=== PATIENT | female | born 1970 | race Caucasian/White ===

== ENCOUNTER 2019-08-09 14:36 | Observation (INO) ==
[2019-08-09] MEDS ORDERED: Isovue-370 500 ML BOTTLE IVP ONE ×2 (15:07→15:41)
[2019-08-09] MEDS ORDERED: Ipratropium/Albuterol Neb 3 ML IH STA (15:08)
[2019-08-09 15:18] LABS: Basophils # 0.1 K/mcL (0.0-0.2); Basophils % 0.8 %; Eosinophils % 0.3 %; Hematocrit 42.8 % (35.3-44.9); Hemoglobin 13.9 g/dL (11.5-15.4); Immature Granulocytes % 0.5 % (0-4); Lymphocytes # 0.5 K/mcL (0.6-4.6); Lymphocytes % 6.3 %; Mean Corpuscular HGB Conc 32.5 g/dL (31.6-35.5); Mean Corpuscular Hemoglobin 26.5 pg (28.0-33.3); Mean Corpuscular Volume 81.7 fL (83.0-100.0); Mean Platelet Volume 9.5 fL (9.4-12.4); Monocytes # 1.3 K/mcL (0.0-1.3); Monocytes % 17.1 %; Neutrophils # 5.6 K/mcL (1.6-8.9); Platelet Count 321 K/mcL (140-400); Red Blood Count 5.24 M/mcL (3.82-4.97); Red Cell Distribution Width 15.8 % (11.5-14.5); White Blood Count 7.4 K/mcL (4.3-11.1)
[2019-08-09 15:28] LABS: INR 1.1; Prothrombin Time 12.2 Seconds (9.4-12.1)
[2019-08-09 15:38] LABS: Alanine Aminotransferase 57 Units/L (7-52); Albumin 4.3 g/dL (3.5-5.7); Albumin/Globulin Ratio 1.2 (1.1-2.2); Alkaline Phosphatase 51 Units/L (34-104); Aspartate Amino Transferase 57 Units/L (13-39); BUN/Creatinine Ratio 19 (6-26); Bilirubin,Direct 0.1 mg/dL (0.0-0.2); Bilirubin,Indirect 0.2 mg/dL (0.0-1.0); Bilirubin,Total 0.3 mg/dL (0.3-1.0); Blood Urea Nitrogen 20 mg/dL (6-20); Calcium 9.7 mg/dL (8.6-10.3); Carbon Dioxide 26 mEq/L (23-29); Chloride 99 mEq/L (98-107); Globulin 3.6 g/dL (2.4-3.5); Glucose 199 mg/dL (70-105); Osmolality,Calculated 290 (280-300); Potassium 4.2 mEq/L (3.5-5.1); Sodium 136 mEq/L (136-145); Total Protein 7.9 g/dL (6.4-8.9); eGFR For African Americans > 60 (> 60); eGFR For Non-African Americans 55 (> 60)
[2019-08-09] MEDS ORDERED: Albuterol Neb 1.25 MG/3 ML VIAL IH ONE (16:39)
[2019-08-09] MEDS ORDERED: Albuterol 2.5 MG/3 ML NEBULIZER IH ONE (16:47)
[2019-08-09] MEDS ORDERED: 0.9 % Sodium Chloride 1,000 ML IVC STA (17:06)
[2019-08-09] MEDS ORDERED: Ondansetron 4 MG/2 ML VIAL IVP PRN (17:40)
[2019-08-09] MEDS ORDERED: Azithromycin 250 MG TABLET PO ONE (17:45)
[2019-08-09] MEDS ORDERED: methylPREDNISolone 125 MG/2 ML VIAL IVP STA (17:45)
[2019-08-09] MEDS ORDERED: Nicotine 2 MG GUM BC PRN (17:47)
[2019-08-09] MEDS ORDERED: *HR* Dextrose 50 % in Water (Syg) 50 ML SYRINGE IVP PRN (17:52)
[2019-08-09] MEDS ORDERED: Dextrose Gel 15 GM/37.5 ML TUBE PO PRN ×2 (17:52)
[2019-08-09] MEDS ORDERED: D5% in Water 1,000 ML IVC PRN (17:52)
[2019-08-09] MEDS: Ipratropium/Albuterol Neb 3 ML IH SCH ×2 (19:52→23:48)
[2019-08-09 20:17] LABS: VBG HCO3 25 mEq/L (21-27); VBG PCO2 51 mmHg (41-51); VBG PH 7.29 pH Units (7.32-7.42); VBG PO2 67 mmHg (25-50)
[2019-08-09] MEDS: Insulin LISPRO 300 UNITS/3 ML VIAL SQ SCH (20:27)
[2019-08-09] MEDS: Nicotine 21 MG PATCH.TD24 TD SCH (20:40)
[2019-08-09] MEDS: Ibuprofen 400 MG TABLET PO PRN (20:44)
[2019-08-10 01:05] LABS: Adenovirus Not Detected (Not Detect); Bordetella Pertussis Not Detected (Not Detect); Chlamydophila pneumoniae Not Detected (Not Detect); Coronavirus 229E Not Detected (Not Detect); Coronavirus HKU1 Not Detected (Not Detect); Coronavirus NL63 Not Detected (Not Detect); Coronavirus OC43 Not Detected (Not Detect); Human Metapneumovirus Not Detected (Not Detect); Human Rhinovirus/Enterovirus Not Detected (Not Detect); Influenza B Not Detected (Not Detect); Mycoplasma pneumoniae Not Detected (Not Detect); Parainfluenza Virus 1 Not Detected (Not Detect); Parainfluenza Virus 2 Not Detected (Not Detect); Parainfluenza Virus 3 Not Detected (Not Detect); Parainfluenza Virus 4 Not Detected (Not Detect); Respiratory Syncytial Virus Not Detected (Not Detect)
[2019-08-10 01:08] LABS: Influenza A Subtype 2009 H1 DETECTED (Not Detect)
[2019-08-10] MEDS: Acetaminophen 325 MG TABLET PO PRN ×4 (01:17→20:48)
[2019-08-10] MEDS: Ipratropium/Albuterol Neb 3 ML IH SCH ×6 (03:17→23:31)
[2019-08-10 04:51] LABS: Mean Corpuscular HGB Conc 31.3 g/dL (31.6-35.5); Mean Corpuscular Hemoglobin 26.8 pg (28.0-33.3); Mean Corpuscular Volume 85.7 fL (83.0-100.0); Mean Platelet Volume 9.8 fL (9.4-12.4); Platelet Count 265 K/mcL (140-400); Red Blood Count 4.55 M/mcL (3.82-4.97); Red Cell Distribution Width 15.7 % (11.5-14.5); White Blood Count 6.7 K/mcL (4.3-11.1)
[2019-08-10 05:00] LABS: Hemoglobin 12.2 g/dL (11.5-15.4)
[2019-08-10] MEDS: *HR* Enoxaparin 40 MG/0.4 ML SYRINGE SQ SCH (05:00)
[2019-08-10] MEDS: Ibuprofen 400 MG TABLET PO PRN (05:00)
[2019-08-10 05:25] LABS: BUN/Creatinine Ratio 19 (6-26); Blood Urea Nitrogen 21 mg/dL (6-20); Calcium 8.4 mg/dL (8.6-10.3); Carbon Dioxide 23 mEq/L (23-29); Chloride 102 mEq/L (98-107); Glucose 131 mg/dL (70-105); Magnesium 1.9 mg/dL (1.6-2.6); Osmolality,Calculated 287 (280-300); Phosphorous 3.5 mg/dL (2.7-4.5); Potassium 3.5 mEq/L (3.5-5.1); Sodium 136 mEq/L (136-145); Troponin I 0.03 ng/mL (< 0.04); eGFR For African Americans > 60 (> 60); eGFR For Non-African Americans 52 (> 60)
[2019-08-10] MEDS: Benzonatate 100 MG CAPSULE PO PRN ×2 (05:59→15:10)
[2019-08-10] MEDS: predniSONE 20 MG TABLET PO SCH (08:51)
[2019-08-10] MEDS: Azithromycin 250 MG TABLET PO SCH (08:51)
[2019-08-10] MEDS: Nicotine 21 MG PATCH.TD24 TD SCH ×2 (08:51→18:01)
[2019-08-10] MEDS: Insulin LISPRO 300 UNITS/3 ML VIAL SQ SCH ×4 (08:51→20:46)
[2019-08-10] MEDS: HYDROcodone BIT/Homatropine LQ 5 MG/5 ML UDC PO PRN ×2 (11:12→20:47)
[2019-08-10] MEDS ORDERED: Insulin DETEMIR 100 UNIT/ML X5UNITS SQ SCH (21:00)
[2019-08-10] MEDS ORDERED: Gabapentin 100 MG CAPSULE PO SCH (21:00)
[2019-08-11] MEDS: Benzonatate 100 MG CAPSULE PO PRN (01:22)
[2019-08-11] MEDS: Acetaminophen 325 MG TABLET PO PRN (03:11)
[2019-08-11] MEDS: Ipratropium/Albuterol Neb 3 ML IH SCH ×4 (04:23→15:32)
[2019-08-11] MEDS: *HR* Enoxaparin 40 MG/0.4 ML SYRINGE SQ SCH (05:42)
[2019-08-11] MEDS: HYDROcodone BIT/Homatropine LQ 5 MG/5 ML UDC PO PRN (05:43)
[2019-08-11] MEDS: Azithromycin 250 MG TABLET PO SCH (07:53)
[2019-08-11] MEDS: predniSONE 20 MG TABLET PO SCH (07:54)
[2019-08-11] MEDS: Insulin LISPRO 300 UNITS/3 ML VIAL SQ SCH ×4 (07:54→12:28)
[2019-08-11] MEDS ORDERED: Fluticasone Propionate Nasal 50 MCG/SPRAY BOTTLE NS SCH (09:00)
[2019-08-11 15:57] VITALS: BP 119/80
== END 2019-08-11 16:21 | disposition home or self-care (01) ==
LOC: EMEROOARM 14:36 → 2NENU 14:36 → SUATTDRO 18:19 → 2NENU 19:30
PROVIDERS: ADMIT Internal Medicine; ATTEND Internal Medicine

== ENCOUNTER 2019-08-16 11:01 | Inpatient (IN) ==
[2019-08-16] MEDS ORDERED: Ipratropium/Albuterol Neb 3 ML IH STA (11:11)
[2019-08-16] MEDS ORDERED: 0.9 % Sodium Chloride 1,000 ML IVC ONE (11:23)
[2019-08-16] MEDS ORDERED: predniSONE 20 MG TABLET PO STA (11:26)
[2019-08-16] MEDS ORDERED: MethylPREDNISolone 40 MG/ML VIAL IVP ONE (11:28)
[2019-08-16 11:40] LABS: Hematocrit 39.8 % (35.3-44.9); Red Blood Count 4.81 M/mcL (3.82-4.97)
[2019-08-16 11:41] LABS: Basophils % 0.3 %; Eosinophils # 0.1 K/mcL (0.0-0.6); Eosinophils % 0.7 %; Immature Granulocytes % 0.7 % (0-4); Lymphocytes # 3.4 K/mcL (0.6-4.6); Lymphocytes % 24.9 %; Mean Corpuscular HGB Conc 32.7 g/dL (31.6-35.5); Mean Corpuscular Volume 82.7 fL (83.0-100.0); Mean Platelet Volume 9.7 fL (9.4-12.4); Monocytes # 1.2 K/mcL (0.0-1.3); Monocytes % 8.4 %; Platelet Count 378 K/mcL (140-400); Red Cell Distribution Width 15.3 % (11.5-14.5)
[2019-08-16] MEDS ORDERED: Azithromycin desensitization 1 mg/mL IVP ONE (11:41)
[2019-08-16 11:42] LABS: White Blood Count 13.8 K/mcL (4.3-11.1)
[2019-08-16 11:43] LABS: Platelet Estimate Normal (Normal); Reactive Lymphocytes Present (Not Present)
[2019-08-16] MEDS ORDERED: Cefepime HCl 2,000 MG in Water for inj. (sterile) 20 ML IVP ONE (11:43)
[2019-08-16] MEDS ORDERED: Azithromycin 500 MG in 0.9 % Sodium Chloride 250 ML IVPB ONE (11:51)
[2019-08-16 11:54] LABS: BUN/Creatinine Ratio 13 (6-26); Blood Urea Nitrogen 12 mg/dL (6-20); Carbon Dioxide 24 mEq/L (23-29); Chloride 105 mEq/L (98-107); Potassium 3.9 mEq/L (3.5-5.1); Sodium 137 mEq/L (136-145)
[2019-08-16 11:55] LABS: Calcium 8.9 mg/dL (8.6-10.3); Glucose 184 mg/dL (70-105); Osmolality,Calculated 289 (280-300); Troponin I < 0.03 ng/mL (< 0.04); eGFR For African Americans > 60 (> 60); eGFR For Non-African Americans > 60 (> 60)
[2019-08-16] MEDS ORDERED: Naloxone 0.4 MG/ML INJ IVP PRN (12:39)
[2019-08-16] MEDS ORDERED: *HR* Dextrose 50 % in Water (Syg) 50 ML SYRINGE IVP PRN (12:43)
[2019-08-16] MEDS ORDERED: D5% in Water 1,000 ML IVC PRN (12:43)
[2019-08-16] MEDS ORDERED: Dextrose Gel 15 GM/37.5 ML TUBE PO PRN ×2 (12:43)
[2019-08-16] MEDS: Furosemide 40 MG/4 ML VIAL IVP SCH ×2 (14:41→20:41)
[2019-08-16] MEDS: Cholecalciferol (D-3) 1,000 UNIT (25MCG) TABLET PO SCH (14:41)
[2019-08-16] MEDS: Budesonide/Formoterol 160/4.5 1 PUFF INH IH SCH ×2 (14:43→19:37)
[2019-08-16] MEDS: MethylPREDNISolone 40 MG/ML VIAL IVP SCH ×2 (14:44→23:05)
[2019-08-16] MEDS: Insulin LISPRO 300 UNITS/3 ML VIAL SQ SCH ×3 (14:46→20:47)
[2019-08-16 16:09] LABS: Adenovirus Not Detected (Not Detect); Coronavirus 229E Not Detected (Not Detect); Coronavirus HKU1 Not Detected (Not Detect); Coronavirus NL63 Not Detected (Not Detect); Coronavirus OC43 Not Detected (Not Detect); Human Metapneumovirus Not Detected (Not Detect); Human Rhinovirus/Enterovirus Not Detected (Not Detect)
[2019-08-16 16:10] LABS: Bordetella Pertussis Not Detected (Not Detect); Chlamydophila pneumoniae Not Detected (Not Detect); Influenza A Subtype 2009 H1 Not Detected (Not Detect); Influenza B Not Detected (Not Detect); Mycoplasma pneumoniae Not Detected (Not Detect); Parainfluenza Virus 1 Not Detected (Not Detect); Parainfluenza Virus 2 Not Detected (Not Detect); Parainfluenza Virus 3 Not Detected (Not Detect); Parainfluenza Virus 4 Not Detected (Not Detect); Respiratory Syncytial Virus Not Detected (Not Detect)
[2019-08-16 16:19] LABS: Estimated Average Glucose 177 mg/dl
[2019-08-16] MEDS: Ipratropium/Albuterol Neb 3 ML IH SCH ×3 (16:27→23:36)
[2019-08-16] MEDS ORDERED: Insulin LISPRO 300 UNITS/3 ML VIAL SQ SCH (16:30)
[2019-08-16 16:36] LABS: ABG Base Excess 0 mEq/L (-2 to 3); ABG HCO3 25 mEq/L (21-27); ABG Oxygen Saturation 89 % (95-98); ABG PCO2 43 mmHg (35-45); ABG PH 7.38 pH Units (7.32-7.45); ABG PO2 59 mmHg (85-104); ABG TCO2 26 mEq/L (20-26); Blood Gas FiO2 3.5 (1-15=lpm or21-100=%)
[2019-08-16] MEDS: Gabapentin 400 MG CAPSULE PO SCH (20:40)
[2019-08-16] MEDS: Insulin DETEMIR 100 UNIT/ML X5UNITS SQ SCH (20:49)
[2019-08-16] MEDS ORDERED: Perflutren Lipid Microsphere 1.3 ML in 0.9 % Sodium Chloride 8.7 ML IVP ONE (21:32)
[2019-08-17 02:58] LABS: Basophils % 0.2 %; Eosinophils % 0.2 %; Hemoglobin 12.6 g/dL (11.5-15.4); Immature Granulocytes % 1.9 % (0-4); Lymphocytes # 1.2 K/mcL (0.6-4.6); Lymphocytes % 9.7 %; Mean Corpuscular HGB Conc 32.3 g/dL (31.6-35.5); Mean Corpuscular Hemoglobin 26.5 pg (28.0-33.3); Mean Corpuscular Volume 82.1 fL (83.0-100.0); Mean Platelet Volume 9.7 fL (9.4-12.4); Monocytes # 0.4 K/mcL (0.0-1.3); Monocytes % 3.2 %; Neutrophils # 10.5 K/mcL (1.6-8.9); Platelet Count 392 K/mcL (140-400); Red Blood Count 4.75 M/mcL (3.82-4.97); Segmented Neutrophils % 84.8 %; White Blood Count 12.3 K/mcL (4.3-11.1)
[2019-08-17 03:18] LABS: BUN/Creatinine Ratio 19 (6-26); Blood Urea Nitrogen 20 mg/dL (6-20); Calcium 8.9 mg/dL (8.6-10.3); Carbon Dioxide 27 mEq/L (23-29); Chloride 101 mEq/L (98-107); Glucose 214 mg/dL (70-105); Magnesium 1.6 mg/dL (1.6-2.6); Osmolality,Calculated 297 (280-300); Phosphorous 4.4 mg/dL (2.7-4.5); Potassium 3.7 mEq/L (3.5-5.1); Sodium 139 mEq/L (136-145); eGFR For African Americans > 60 (> 60); eGFR For Non-African Americans 55 (> 60)
[2019-08-17] MEDS: Ipratropium/Albuterol Neb 3 ML IH SCH ×5 (03:22→20:04)
[2019-08-17] MEDS: *HR* Enoxaparin 40 MG/0.4 ML SYRINGE SQ SCH (05:17)
[2019-08-17] MEDS: Budesonide/Formoterol 160/4.5 1 PUFF INH IH SCH ×2 (07:40→20:04)
[2019-08-17] MEDS: Furosemide 40 MG/4 ML VIAL IVP SCH ×2 (07:59→17:04)
[2019-08-17] MEDS: MethylPREDNISolone 40 MG/ML VIAL IVP SCH ×2 (07:59→17:06)
[2019-08-17] MEDS: Cholecalciferol (D-3) 1,000 UNIT (25MCG) TABLET PO SCH (08:00)
[2019-08-17] MEDS: Azithromycin 500 MG in 0.9 % Sodium Chloride 250 ML IVPB SCH (08:03)
[2019-08-17] MEDS: Nicotine 21 MG PATCH.TD24 TD SCH (08:12)
[2019-08-17] MEDS: cefTRIAXone 1,000 MG in Water for inj. (sterile) 10 ML IVP SCH (08:13)
[2019-08-17] MEDS: Insulin LISPRO 300 UNITS/3 ML VIAL SQ SCH ×4 (08:16→20:43)
[2019-08-17] MEDS: Insulin DETEMIR 100 UNIT/ML X5UNITS SQ SCH (20:45)
[2019-08-17] MEDS: Gabapentin 400 MG CAPSULE PO SCH (20:46)
[2019-08-18] MEDS: Ipratropium/Albuterol Neb 3 ML IH SCH ×6 (00:12→20:19)
[2019-08-18] MEDS: Furosemide 40 MG/4 ML VIAL IVP SCH ×2 (05:18→17:28)
[2019-08-18] MEDS: MethylPREDNISolone 40 MG/ML VIAL IVP SCH ×2 (05:20→17:28)
[2019-08-18] MEDS: *HR* Enoxaparin 40 MG/0.4 ML SYRINGE SQ SCH (05:22)
[2019-08-18 05:24] LABS: Basophils % 0.1 %; Eosinophils % 0.1 %; Hematocrit 37.4 % (35.3-44.9); Hemoglobin 11.9 g/dL (11.5-15.4); Immature Granulocytes % 1.4 % (0-4); Lymphocytes # 2.4 K/mcL (0.6-4.6); Lymphocytes % 16.1 %; Mean Corpuscular HGB Conc 31.8 g/dL (31.6-35.5); Mean Corpuscular Hemoglobin 26.9 pg (28.0-33.3); Mean Corpuscular Volume 84.4 fL (83.0-100.0); Mean Platelet Volume 9.9 fL (9.4-12.4); Monocytes # 1.1 K/mcL (0.0-1.3); Monocytes % 7.7 %; Platelet Count 474 K/mcL (140-400); Red Blood Count 4.43 M/mcL (3.82-4.97); Red Cell Distribution Width 14.9 % (11.5-14.5); Segmented Neutrophils % 74.6 %; White Blood Count 14.8 K/mcL (4.3-11.1)
[2019-08-18 05:43] LABS: BUN/Creatinine Ratio 28 (6-26); Blood Urea Nitrogen 29 mg/dL (6-20); Calcium 8.6 mg/dL (8.6-10.3); Carbon Dioxide 27 mEq/L (23-29); Chloride 99 mEq/L (98-107); Glucose 284 mg/dL (70-105); Osmolality,Calculated 302 (280-300); Phosphorous 3.8 mg/dL (2.7-4.5); Potassium 3.4 mEq/L (3.5-5.1); Sodium 138 mEq/L (136-145); eGFR For African Americans > 60 (> 60); eGFR For Non-African Americans 55 (> 60)
[2019-08-18] MEDS: Nicotine 21 MG PATCH.TD24 TD SCH (08:05)
[2019-08-18] MEDS: Budesonide/Formoterol 160/4.5 1 PUFF INH IH SCH ×2 (08:05→20:20)
[2019-08-18] MEDS: Cholecalciferol (D-3) 1,000 UNIT (25MCG) TABLET PO SCH (08:06)
[2019-08-18] MEDS: cefTRIAXone 1,000 MG in Water for inj. (sterile) 10 ML IVP SCH (08:07)
[2019-08-18] MEDS: Azithromycin 500 MG in 0.9 % Sodium Chloride 250 ML IVPB SCH (08:08)
[2019-08-18] MEDS: Insulin LISPRO 300 UNITS/3 ML VIAL SQ SCH ×5 (08:30→21:06)
[2019-08-18] MEDS ORDERED: Furosemide 40 MG/4 ML VIAL IVP SCH (09:00)
[2019-08-18] MEDS: Insulin DETEMIR 100 UNIT/ML X5UNITS SQ SCH ×2 (13:24→21:07)
[2019-08-18] MEDS: Gabapentin 400 MG CAPSULE PO SCH (20:00)
[2019-08-19] MEDS: Ipratropium/Albuterol Neb 3 ML IH SCH ×7 (04:25→23:23)
[2019-08-19] MEDS: *HR* Enoxaparin 40 MG/0.4 ML SYRINGE SQ SCH (04:53)
[2019-08-19] MEDS: Furosemide 40 MG/4 ML VIAL IVP SCH ×2 (04:59→18:25)
[2019-08-19 06:01] LABS: Basophils % 0.2 %; Eosinophils % 0.1 %; Hematocrit 38.6 % (35.3-44.9); Immature Granulocytes % 0.9 % (0-4); Lymphocytes # 2.5 K/mcL (0.6-4.6); Lymphocytes % 19.2 %; Mean Corpuscular HGB Conc 31.1 g/dL (31.6-35.5); Mean Corpuscular Hemoglobin 26.3 pg (28.0-33.3); Mean Corpuscular Volume 84.5 fL (83.0-100.0); Mean Platelet Volume 9.7 fL (9.4-12.4); Monocytes % 7.7 %; Neutrophils # 9.2 K/mcL (1.6-8.9); Platelet Count 471 K/mcL (140-400); Red Blood Count 4.57 M/mcL (3.82-4.97); Red Cell Distribution Width 14.9 % (11.5-14.5); Segmented Neutrophils % 71.9 %; White Blood Count 12.8 K/mcL (4.3-11.1)
[2019-08-19 06:20] LABS: BUN/Creatinine Ratio 31 (6-26); Blood Urea Nitrogen 29 mg/dL (6-20); Calcium 8.7 mg/dL (8.6-10.3); Carbon Dioxide 31 mEq/L (23-29); Chloride 100 mEq/L (98-107); Glucose 186 mg/dL (70-105); Magnesium 2.2 mg/dL (1.6-2.6); Osmolality,Calculated 307 (280-300); Phosphorous 3.7 mg/dL (2.7-4.5); Potassium 3.7 mEq/L (3.5-5.1); Sodium 143 mEq/L (136-145); eGFR For African Americans > 60 (> 60); eGFR For Non-African Americans > 60 (> 60)
[2019-08-19] MEDS: Budesonide/Formoterol 160/4.5 1 PUFF INH IH SCH ×2 (07:19→19:59)
[2019-08-19] MEDS: Insulin LISPRO 300 UNITS/3 ML VIAL SQ SCH ×4 (08:55→20:53)
[2019-08-19] MEDS: Insulin DETEMIR 100 UNIT/ML X5UNITS SQ SCH ×2 (09:15→20:53)
[2019-08-19] MEDS: cefTRIAXone 1,000 MG in Water for inj. (sterile) 10 ML IVP SCH (09:52)
[2019-08-19] MEDS: Azithromycin 500 MG in 0.9 % Sodium Chloride 250 ML IVPB SCH (09:53)
[2019-08-19] MEDS: Nicotine 21 MG PATCH.TD24 TD SCH (09:53)
[2019-08-19] MEDS: Cholecalciferol (D-3) 1,000 UNIT (25MCG) TABLET PO SCH (09:54)
[2019-08-19] MEDS: predniSONE 20 MG TABLET PO SCH (09:54)
[2019-08-19] MEDS: Gabapentin 400 MG CAPSULE PO SCH (20:53)
[2019-08-20] MEDS: Ipratropium/Albuterol Neb 3 ML IH SCH ×3 (03:45→11:24)
[2019-08-20 04:38] LABS: Basophils % 0.2 %; Eosinophils % 0.1 %; Hematocrit 39.6 % (35.3-44.9); Hemoglobin 12.4 g/dL (11.5-15.4); Immature Granulocytes % 0.7 % (0-4); Lymphocytes # 5.1 K/mcL (0.6-4.6); Lymphocytes % 34.2 %; Mean Corpuscular HGB Conc 31.3 g/dL (31.6-35.5); Mean Corpuscular Hemoglobin 26.4 pg (28.0-33.3); Mean Corpuscular Volume 84.4 fL (83.0-100.0); Mean Platelet Volume 9.4 fL (9.4-12.4); Monocytes # 1.2 K/mcL (0.0-1.3); Monocytes % 8.2 %; Neutrophils # 8.4 K/mcL (1.6-8.9); Platelet Count 474 K/mcL (140-400); Red Blood Count 4.69 M/mcL (3.82-4.97); Red Cell Distribution Width 14.6 % (11.5-14.5); Segmented Neutrophils % 56.6 %; White Blood Count 14.9 K/mcL (4.3-11.1)
[2019-08-20 05:01] LABS: BUN/Creatinine Ratio 34 (6-26); Blood Urea Nitrogen 37 mg/dL (6-20); Calcium 8.8 mg/dL (8.6-10.3); Carbon Dioxide 31 mEq/L (23-29); Chloride 97 mEq/L (98-107); Glucose 170 mg/dL (70-105); Magnesium 2.2 mg/dL (1.6-2.6); Osmolality,Calculated 297 (280-300); Potassium 3.3 mEq/L (3.5-5.1); Sodium 137 mEq/L (136-145); eGFR For African Americans > 60 (> 60); eGFR For Non-African Americans 53 (> 60)
[2019-08-20] MEDS: *HR* Enoxaparin 40 MG/0.4 ML SYRINGE SQ SCH (05:33)
[2019-08-20] MEDS: Furosemide 40 MG/4 ML VIAL IVP SCH (05:33)
[2019-08-20 07:55] VITALS: BP 116/62
[2019-08-20] MEDS: Budesonide/Formoterol 160/4.5 1 PUFF INH IH SCH (07:59)
[2019-08-20] MEDS: Insulin LISPRO 300 UNITS/3 ML VIAL SQ SCH ×2 (08:00→13:08)
[2019-08-20] MEDS: Nicotine 21 MG PATCH.TD24 TD SCH (09:32)
[2019-08-20] MEDS: Azithromycin 500 MG in 0.9 % Sodium Chloride 250 ML IVPB SCH (09:32)
[2019-08-20] MEDS: cefTRIAXone 1,000 MG in Water for inj. (sterile) 10 ML IVP SCH (09:33)
[2019-08-20] MEDS: Cholecalciferol (D-3) 1,000 UNIT (25MCG) TABLET PO SCH (09:33)
[2019-08-20] MEDS: predniSONE 20 MG TABLET PO SCH (09:33)
[2019-08-20] MEDS: Insulin DETEMIR 100 UNIT/ML X5UNITS SQ SCH (09:34)
== END 2019-08-20 13:50 | disposition home or self-care (01) | DRG 291 ==
LOC: 3BNU 11:01 → EMEROOARM 11:01 → SUATTDRO 12:38 → 3BNU 13:51
PROVIDERS: ADMIT Student in an Organized Health Care Education/Training Program; ATTEND Internal Medicine